=== PATIENT | male | born 1975 | race Caucasian/White ===

== ENCOUNTER 2016-10-23 14:23 | Emergency (ER) | payer OTHER ==
[~2016-10-23] VITALS: Ht 180.3 cm; Wt 81.3 kg
[2016-10-23 14:26] VITALS: BP 144/92; TEMP 36.7; Ht 180.3 cm; Wt 81.3 kg
[2016-10-23] MEDS ORDERED: LOSA100T26 PO (15:01)
[2016-10-23] MEDS ORDERED: BISO5TAB3 PO (15:01)
--- NOTE | 2016-10-23 15:12 | DIAGNOSTIC IMAGING REPORT ---
RIGHT KNEE 3 VIEWS CLINICAL HISTORY: Right knee pain and swelling. FINDINGS: AP, crosstable lateral, and sunrise views of the right knee are obtained. No prior studies are available for comparison at the time of dictation. The skeletal structures are well mineralized. No fracture is seen. The joint spaces of the knee are preserved. A small joint effusion is suspected. Mild soft tissue swelling is noted. IMPRESSION: Mild soft tissue swelling and small joint effusion. No right knee fracture is identified. Electronically signed by: Danie Bowie M.D. 10/23/2016 3:11 PM Dictated Date/Time: 10/23/2016 3:10 PM
[2016-10-23 15:33] VITALS: PULSE 82; O2SAT 97
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
[2016-12-21] MEDS ORDERED: KETO10TA PO (08:48)
[2016-12-21] MEDS ORDERED: OXYC-57 PO (08:48)
== END 2016-10-23 15:33 | disposition home or self-care (01) ==
LOC: EDBD 14:26 → C.EDB 14:26 → C.EDD 15:33
DX: S83.511A Sprain of anterior cruciate ligament of right knee, initial encounter (principal); W19.XXXA Unspecified fall, initial encounter; I10 Essential (primary) hypertension; Z79.899 Other long term (current) drug therapy

== ENCOUNTER → 2016-12-21 | Day surgery (SDC) | payer OTHER ==
[2016-12-14 07:47] VITALS: Ht 180.3 cm; Wt 80.9 kg
[~2016-12-21] VITALS: Ht 180.3 cm; Wt 80.9 kg
[~2016-12-21] MED LIST: ATROPINE SULFATE 0.1 MG/ML 5ML SYR IV PRN; BISO5TAB3 PO; CEFAZOLIN 1000MG/55 ML D5W IV SCH; CEFAZOLIN SOD 1 GM VIAL ONE; CEFAZOLIN SOD 1000MG/55 ML D5W IV ONE; DEXAMETHASONE SOD INJ 4 MG/ML VIAL ONE; EpHEDrine SULFATE INJ 50 MG/ML AMP IV PRN; EpINEphrine INJ 1MG/ML AMP 1 MG/ML AMP ONE; FENTANYL CITRATE INJ 50 MCG/1 ML 2 ML VIAL IV PRN; FENTANYL CITRATE INJ 50 MCG/1 ML 2 ML VIAL ONE; KETO10TA PO; KETOROLAC TROMETHAMINE 30 MG/ML VIAL ONE; LACTATED RINGER'S 1000ML 1,000 ML IV SCH; LIDOCAINE HCL 2% 2 ML VIAL (20MG/ML) ONE; LOSA100T26 PO; MIDAZOLAM HCL 1 MG/ML 2ML VIAL ONE; ONDANSETRON INJ 2 MG/ML 2 ML VIAL IV PRN; ONDANSETRON INJ 2 MG/ML 2 ML VIAL ONE; OXYC-57 PO; OXYCODONE/ACETAMINOPHEN 5-325 TAB ONE; OXYCODONE/ACETAMINOPHEN 5-325 TAB PO PRN; PROPOFOL IV EMULSION 10 MG/ML 20 ML VIAL IV ONE; ROPIVACAINE 0.5% 5 MG/ML 30 ML VIAL ONE; SODIUM CHLORIDE 0.9% 1000ML 1,000 ML IV SCH
--- NOTE | 2016-12-21 06:57 | History & Physical Bridge - SC ---
H&P Re-Evaluation Bridge Note: I have examined the patient, reviewed the History & Physical and in the interval since the performance of the History & Physical I have noted the following changes of clinical significance: No changes noted
--- NOTE | 2016-12-21 08:47 | [facility] Post Operative Brief Note ---
Immediate Operative Summary Operative Date Dec 21, 2016. Pre-Operative Diagnosis Right Knee Anterior Cruciate Ligament Tear Post-Operative Diagnosis Same Procedure(s) Performed Right Knee Arthroscopic Anterior Cruciate Ligament Reconstruction With Hamstring Autograft Surgeon Dr Stoll Lathing Supervisor Surgeon(s) Lucius Mckeon PA-C Estimated Blood Loss Minimal Findings ACL Tear Specimens None Drains None Anesthesia General Complication(s) None Disposition Recovery Room / PACU
--- NOTE | 2016-12-21 08:50 | Discharge Instructions-SurgCtr ---
Discharge Instructions Date of Service Dec 21, 2016. Visit Reason for Visit: Right Knee Rupture Anterior Cruciate Ligament Discharge Discharge Diagnosis / Problem: RIGHT ACL TEAR Discharge Goals Goal(s): Decrease discomfort, Improve function, Therapeutic intervention Activity Recommendations Activity Limitations: per Instructions/Follow-up section Weightbearing Status: Right weightbearing (as tolerated with brace ) Anesthesia . Post Anesthesia Instructions: If you have had General Anesthesia or IV Sedation: * Do not drive today. * Resume driving when surgeon permits. * Do not make important decisions or sign legal documents today. * Call surgeon for: 1. Temperature elevations greater than 101 degrees F. 2. Uncontrollable pain. 3. Excessive bleeding. 4. Persistent nausea and vomiting. 5. Medication intolerance (nausea, vomiting or rash). * For nausea and vomiting use only clear liquids such as: tea, soda, bouillon until nausea subsides, then gradually increase diet as tolerated. * If you have any concerns or questions, call your surgeon's office. If physician is unavailable and it is an emergency, call 911 or go to the nearest emergency room. . Instructions / Follow-Up Instructions / Follow-Up MEDICATIONS: * Resume previous medications unless instructed otherwise by your surgeon. * Always take pain medication on a full stomach or with food to avoid upset stomach. * Do not drink alcohol or drive while taking narcotics. * Ibuprofen or Tylenol may be taken if narcotic not needed. No ibuprofen while taking toradol SPECIAL CARE INSTRUCTIONS: __ None _x_ Keep extremity elevated and iced x 48 hours; apply ice 20-30 minutes 8-10 times/day. May remove at night. _x_ Crutches __ May discard when able _x_ Brace for weight bearing (remove for therapy exercises) __ 24 hrs/day __ Remove at night _x_ Dressing __ Maintain until seen in office, may shower with plastic over site _x_ Remove dressings in 24-48 hours and then may shower _x_ Cover incisions with band-aids after showering _x_ Do not remove steri-strips Call physician if chills or temperature rises above 102 degrees or pain unrelieved by prescribed pain medications. Office [phone] follow up in 2 weeks Diet Recommendations Home Diet: resume previous diet Procedures Procedures Performed: Right Knee Arthroscopic Anterior Cruciate Ligament Reconstruction With Hamstring Autograft Pending Studies Studies pending at discharge: no Medical Emergencies . Who to Call and When: Medical Emergencies: If at any time you feel your situation is an emergency, please call 911 immediately. . Non-Emergent Contact Non-Emergency issues call your: Surgeon . . "Provider Documentation" section prepared by Sarkis Mckeon. .
--- NOTE | 2016-12-21 09:09 | Anesthesiology Progress Note ---
Anesthesia Post Op Note Date & Time Dec 21, 2016 at 09:09 Vital Signs Pain Intensity: 3.0 Vital Signs Past 12 Hours Date Time Temp Pulse Resp B/P (MAP) Pulse Ox O2 Delivery O2 Flow Rate FiO2 12/21/16 08:56 138/98 12/21/16 08:55 60 8 12/21/16 08:55 60 8 100 12/21/16 08:51 132/97 12/21/16 08:50 58 14 100 12/21/16 08:50 58 14 12/21/16 08:45 71 18 12/21/16 08:45 70 18 146/88 100 12/21/16 08:45 36.7 72 12 146/88 100 Diffusion Mask 6 12/21/16 07:00 60 12 124/73 (90) 99 Mask 6 12/21/16 06:40 36.6 62 16 138/94 (109) 99 Room Air Notes Mental Status: alert / awake / arousable, participated in evaluation Pt Amnestic to Procedure: Yes Nausea / Vomiting: adequately controlled Pain: adequately controlled Airway Patency, RR, SpO2: stable & adequate BP & HR: stable & adequate Hydration State: stable & adequate Anesthetic Complications: no major complications apparent
[2016-12-21 09:28] VITALS: TEMP 36.3
[2016-12-21 10:11] VITALS: O2SAT 100
[2016-12-21 10:13] VITALS: BP 155/84
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
== END | disposition home or self-care (01) ==
LOC: X.SURG 06:03
PROVIDERS: ATTEND Orthopaedic Surgery Sports Medicine
DX: S83.511A Sprain of anterior cruciate ligament of right knee, initial encounter (principal); W22.8XXA Striking against or struck by other objects, initial encounter; I10 Essential (primary) hypertension; R00.2 Palpitations